=== PATIENT | female | born 1975 | race Caucasian/White ===

== ENCOUNTER 2020-01-22 17:07 | Emergency (ER) | payer OTHER, SELFPAY ==
[2020-01-22 17:19] VITALS: BP 135/81; PULSE 84; RESP 16; TEMP 36.7; O2SAT 99
--- NOTE | 2020-01-22 17:27 | ED.URI ---
HPI - URI/Sore Throat General Chief Complaint: Upper Respiratory Infection Stated Complaint: Congestion/Left eye redness Time Seen by Provider: 01/22/20 17:20 Source: patient Mode of arrival: ambulatory Limitations: no limitations History of Present Illness HPI Narrative: Kathia Nassar is a 45 yo female with no PMH who comes to express care with left eye with left eye swelling, redness. Started 1 day ago stated Related Data Home Medications Medication Instructions Recorded Confirmed clobetasol 0.05 % topical cream 1 applic TOPICAL BID 09/15/19 Allergies Allergy/AdvReac Type Severity Reaction Status Date / Time gramicidin D Allergy Mild RASH Verified 10/04/19 14:11 neomycin Allergy Mild RASH Verified 10/04/19 14:11 bacitracin Allergy Unknown Rash Verified 10/04/19 14:11 polymyxin B Allergy Unknown Rash Verified 10/04/19 14:11 Review of Systems Review of Systems: Narrative: CONSTITUTIONAL: Denies fever, chills, sweats. EYES: Denies visual changes,has redness, discharge. ENT: Denies rhinorrhea, congestion, sore throat, otalgia. CARDIOVASCULAR: Denies chest pain, palpitations, edema. RESPIRATORY: Denies dyspnea, wheezing, cough GASTROINTESTINAL: Denies abdominal pain, nausea, vomiting, diarrhea. GENITOURINARY: Denies dysuria, hematuria, abnormal discharge SKIN: Denies rash or itching. NEUROLOGIC: Denies numbness, or focal weakness. PSYCHIATRIC: Denies anxiety or depression. [facility] Past Medical History Medical History (Updated 01/22/20 @ 17:45 by Ameena Melendez CNP) Scoliosis Surgical History Surgical History H/O hysterectomy with oophorectomy (~2008) History of bladder surgery Family History Family History Father Diabetes mellitus Hypertension Malignant neoplasm of prostate Sibling Hypertension Mother Hypertension Social History Social History Smoking status: Never smoker Second hand tobacco smoke exposure: No Alcohol intake: never Comments At time of signature, I agree with nursing past medical, surgical, social and family history. There is no relevant family history pertinent to the presenting complaint. Exam Narrative: Exam Narrative: GENERAL: This is a well-nourished, well-developed patient, in no apparent distress. HEAD: normocephalic, atraumatic. EYES: Sclera clear/ left eye injected. vision is grossly intact. EARS: External ears normal, auditory canals clear and without drainage, Hearing grossly intact. NOSE: External nose normal with no obvious nasal discharge, nares without redness, no rhinorrhea. THROAT: Mucous membranes moist, posterior pharynx clear. NECK: Neck supple, non-tender y. CARDIOVASCULAR: Regular rate and rhythm without murmurs, gallops, or rubs. RESPIRATORY: Clear to auscultation. Breath sounds equal bilaterally. No wheezes, rales, or rhonchi. GASTROINTESTINAL: Abdomen soft, non-tender, SKIN: warm, intact with no suspicious lesions or rash, good texture and turgor. NEURO: awake, alert, and oriented to person, place and time. There were no obvious focal neurologic abnormalities. Steady gait EXTREMITIES: Normal range of motion. BACK: Nontender without deformity . Course Course Emergency Course: started on Bleph 10 - instructions given, take meds minimum 3 days Vital Signs Vital signs: Vital Signs Temperature 98.1 F 01/22/20 17:19 Pulse Rate 84 01/22/20 17:19 Respiratory Rate 16 01/22/20 17:19 Blood Pressure 135/81 01/22/20 17:19 Pulse Oximetry 99 01/22/20 17:19 Temperature 98.1 F 01/22/20 17:19 Pulse Rate 84 01/22/20 17:19 Respiratory Rate 16 01/22/20 17:19 Blood Pressure 135/81 01/22/20 17:19 Pulse Oximetry 99 01/22/20 17:19 MDM - URI/Sore Throat Differential Diagnosis Differential diagnosis: Likely upper respiratory infection, otitis media,
== END 2020-01-22 17:39 | disposition home or self-care (01) ==
PROVIDERS: Emergency Provider Nurse Practitioner; PCP Family Medicine
DX: H10.022 Other mucopurulent conjunctivitis, left eye (principal); H10.9 Unspecified conjunctivitis; J45.909 Unspecified asthma, uncomplicated
CPT/HCPCS: 99213; G0463

== ENCOUNTER 2021-04-20 12:01 | Outpatient (CLI) | payer OTHER, SELFPAY ==
[2021-04-20 12:45] LABS: Alanine Aminotransferase 28 U/L (4-35); Albumin Level 4.7 g/dL (3.5-5.1); Alkaline Phosphatase 75 U/L (38-126); Anion Gap 9 mmol/L (8-16); Aspartate Amino Transferase 33 U/L (14-36); Bilirubin,Total 0.8 mg/dL (0.2-1.3); Blood Urea Nitrogen 10 mg/dL (7-17); Calcium 10.2 mg/dL (8.4-10.2); Carbon Dioxide 28 mmol/L (22-30); Chloride 105 mmol/L (98-107); Cholesterol 188 mg/dL (0-200); Estimated Glomerular Filt Rate > 60; Glucose 94 mg/dL (65-105); HDL Direct 45 mg/dL; Potassium 4.1 mmol/L (3.4-5.0); Sodium 142 mmol/L (137-145); Triglycerides 209 mg/dL (<150)
[2021-04-20 12:57] LABS: LDL Cholesterol Direct 87 mg/dL
[2021-04-20 13:58] LABS: Hemoglobin A1C 5.1 % (<5.7)
== END 2021-04-20 12:02 | disposition home or self-care (01) ==
LOC: ANHLAB 12:03
PROVIDERS: PCP Family Medicine; Visit Provider Physician Assistant
DX: Z00.00 Encounter for general adult medical examination without abnormal findings (principal); R73.09 Other abnormal glucose
CPT/HCPCS: 36415; 80053; 80061; 83036

== ENCOUNTER 2021-04-27 15:17 | Outpatient (CLI) | payer OTHER, SELFPAY ==
--- NOTE | ~2021-04-27 | MM_ITS ---
EXAMINATION: MM screening damien BI w tab HISTORY: Screening mammogram TECHNIQUE: Craniocaudal and mediolateral oblique 3-D tomosynthesis images were obtained and synthetic 2-D images were generated. CAD analysis was submitted and interpreted. COMPARISON: 06/02/2019 BREAST PARENCHYMAL COMPOSITION: The breasts are heterogeneously dense, which may obscure small masses . FINDINGS: RIGHT BREAST: There is tree in the middle third of the upper outer quadrant of the breast. LEFT BREAST: There is no evidence of suspicious mass, calcification, or architectural distortion to s uggest malignancy. There has been no significant interval change. IMPRESSION: 1. Focal asymmetry of the right breast. 2. Additional mammographic views and possible breast ultrasound are recommended. BI-RADS Category 0: Incomplete: Needs additional imaging evaluation. Reviewed, dictated and finalized at location A. IMPRESSION: 1. Focal asymmetry of the right breast. 2. Additional mammographic views and possible breast ultrasound are recommended . BI-RADS Category 0: Incomplete: Needs additional imaging evaluation.
== END 2021-04-27 15:18 | disposition home or self-care (01) ==
LOC: ANHIMG 15:19
PROVIDERS: PCP Family Medicine; Visit Provider Physician Assistant
DX: Z12.39 Encounter for other screening for malignant neoplasm of breast (principal); R92.8 Other abnormal and inconclusive findings on diagnostic imaging of breast
CPT/HCPCS: 77063; 77067

== ENCOUNTER 2021-04-30 14:26 | Emergency (ER) | payer OTHER, SELFPAY ==
--- NOTE | 2021-04-30 14:32 | ED.WOUNDLAC ---
HPI - Wound/Laceration General Chief Complaint: Wound/Laceration Stated Complaint: Laceration on forehead Time Seen by Provider: 04/30/21 14:32 Source: patient and RN notes reviewed Mode of arrival: ambulatory Limitations: no limitations History of Present Illness HPI narrative: 46-year-old female presents to the [facility] with complaints of a laceration center of the anterior scalp. Happened just prior to arrival. No loss of consciousness. No blurry vision or change in vision. No neurologic symptoms. Bleeding is now well controlled. Pressure held to the wound. Patient states that she hit her head on the corner of a cabinet when she went to stand up. Last TDap 2017 Related Data Home Medications Medication Instructions Recorded Confirmed No Home Medications 04/30/21 04/30/21 Allergies Allergy/AdvReac Type Severity Reaction Status Date / Time gramicidin D Allergy Mild RASH Verified 04/30/21 14:44 neomycin Allergy Mild RASH Verified 04/30/21 14:44 bacitracin Allergy Unknown Rash Verified 04/30/21 14:44 polymyxin B Allergy Unknown Rash Verified 04/30/21 14:44 cephalexin AdvReac Severe Vomiting Verified 04/30/21 14:44 Review of Systems Review of Systems: All systems reviewed & are unremarkable except as noted in HPI and below Constitutional: Constitutional: Reports no additional constitutional complaints, Denies chills and Denies fever(s) Eyes: Eyes: Reports no additional eye complaints, Denies change in vision and Denies photophobia ENT: Reports system reviewed and no additional complaints, except as documented Cardiovascular: Cardiovascular: Reports no additional cardiovascular complaints and Denies chest pain Respiratory: Respiratory: Reports no additional respiratory complaints, Denies cough and Denies dyspnea Musculoskeletal: Musculoskeletal: Reports no additional musculoskeletal complaints Integumentary/Breasts: Skin/Breast: Reports as per HPI Comments: Laceration scalp anterior center Neurologic: Reports system reviewed and no additional complaints, except as documented, Denies confusion, Denies vertigo, Denies dizziness, Denies syncope, Denies headache(s), Denies focal weakness, Denies numbness and Denies weakness Psychiatric: Psychiatric: Reports no additional psychiatric complaints Allergic/Immunologic: Allergic/Immunologic: Reports no additional allergic/immunologic complaints, Denies lip swelling, Denies throat swelling, Denies tongue swelling and Denies wheezing PMFSH Past Medical History Medical History Scoliosis Surgical History Surgical History H/O hysterectomy with oophorectomy (~2008) History of bladder surgery Family History Family History Father Diabetes mellitus Hypertension Malignant neoplasm of prostate Sibling Hypertension Mother Hypertension Social History Social History Smoking status: Never smoker Second hand tobacco smoke exposure: No Alcohol intake: never Substance use: never Substance use type: does not use Spiritual care concerns: No Agree to blood products: Yes Comments At the time of my signature, I reviewed and agree with the nursing past medical, surgical, social, and family history. There is no relevant family history pertinent to the patient complaint. Exam Const: General: healthy appearing, no acute distress and alert Nutritional Appearance: well nourished and obese Orientation/consciousness: patient oriented x3 Limitations: no limitations HENMT: Head: normal to inspection and laceration center anterior scalp linear and superficial; not actively bleeding, no foreign body present and not contaminated Ears: external ears normal, TM's normal bilaterally and EAC's normal Eyes: Conjunctivae: conjunctivae normal Pupils: Equa
[2021-04-30 14:36] VITALS: BP 135/77; PULSE 88; RESP 16; TEMP 36.6; O2SAT 100
== END 2021-04-30 14:50 | disposition home or self-care (01) ==
PROVIDERS: Emergency Provider Nurse Practitioner; PCP Family Medicine
DX: S01.01XA Laceration without foreign body of scalp, initial encounter (principal); W22.8XXA Striking against or struck by other objects, initial encounter; M41.9 Scoliosis, unspecified; J45.909 Unspecified asthma, uncomplicated; Z90.711 Acquired absence of uterus with remaining cervical stump
CPT/HCPCS: 12001; 99212; G0463

== ENCOUNTER 2021-05-23 13:26 | Outpatient (CLI) | payer OTHER, SELFPAY ==
--- NOTE | ~2021-05-23 | MM_ITS ---
EXAMINATION: MM diagnostic mammo unilat RT HISTORY: Focal asymmetry of the right breast on screening mammogram TECHNIQUE: Additional 3-D tomosynthesis images of the right breast were performed and synthetic 2-D i mages were generated. CAD analysis was submitted and interpreted. COMPARISON: 04/30/2018, 06/02/2019 FINDINGS: There is a return to baseline fibroglandular appearance with spot compression of the right breast in the area questioned on screening mammogram. IMPRESSION: 1. No mammographic evidence of malignancy. 2. Recommend routine screening mammography in one year. BI-RADS Category 1: Negative Reviewed, dictated and finalized at location A.
== END 2021-05-23 13:27 | disposition home or self-care (01) ==
LOC: ANHIMG 13:27
PROVIDERS: PCP Family Medicine; Visit Provider Family Medicine
DX: R92.8 Other abnormal and inconclusive findings on diagnostic imaging of breast (principal)
CPT/HCPCS: 77065

== ENCOUNTER 2022-09-21 11:26 | Outpatient (CLI) | payer BC, SELFPAY ==
--- NOTE | ~2022-09-21 | MM_ITS ---
EXAMINATION: MM screening damien BI w tab HISTORY: Screening TECHNIQUE: Craniocaudal and mediolateral oblique 3-D tomosynthesis images were obtained and synthetic 2-D images were generated. CAD analysis was submitted and interpreted. COMPARISON: Comparison to multiple prior studies sequentially, with oldest reviewed study dated 06/02. BREAST PARENCHYMAL COMPOSITION: The breasts are heterogeneously dense, which may obscure small masses . FINDINGS: There are new focal asymmetries inferiorly in the left breast on MLO view. The right breast is stable without evidence for malignancy. IMPRESSION: 1. New left breast asymmetries. 2. Additional mammographic views and possible breast ultrasound are recommended. BI-RADS Category 0: Incomplete: Needs additional imaging evaluation. Reviewed, dictated and finalized at location A. [employer]ER IMPRESSION: 1. New left breast asymmetries. 2. Additional mammographic views and possible breast ultrasound are recommended . BI-RADS Category 0: Incomplete: Needs additional imaging evaluation.
== END 2022-09-21 11:27 | disposition home or self-care (01) ==
PROVIDERS: PCP Family Medicine; Visit Provider Family Medicine
DX: Z12.31 Encounter for screening mammogram for malignant neoplasm of breast (principal); R92.8 Other abnormal and inconclusive findings on diagnostic imaging of breast
CPT/HCPCS: 77063; 77067

== ENCOUNTER 2022-10-10 13:49 | Outpatient (CLI) | payer BC, SELFPAY ==
--- NOTE | ~2022-10-10 | MM_ITS ---
EXAMINATION: MM diagnostic damien LT w tab HISTORY: Left breast asymmetry on screening mammogram TECHNIQUE: Additional 3-D tomosynthesis images of the left breast were performed and synthetic 2-D im ages were generated. CAD analysis was submitted and interpreted. COMPARISON: 09/21/2022, 04/27/2021, 06/02/2019 FINDINGS: There is a return to baseline fibroglandular appearance with spot compression of the left b reast in the area questioned on screening mammogram. IMPRESSION: 1. No mammographic evidence of malignancy. 2. Recommend routine screening mammography in one year. BI-RADS Category 1: Negative Reviewed, dictated and finalized at location A. MAN
== END 2022-10-10 13:50 | disposition home or self-care (01) ==
LOC: ANHIMG 13:51
PROVIDERS: PCP Family Medicine; Visit Provider Family Medicine
DX: R92.8 Other abnormal and inconclusive findings on diagnostic imaging of breast (principal)
CPT/HCPCS: 77061; 77065; G0279

== ENCOUNTER 2023-06-28 07:07 | Outpatient (CLI) | payer BC, SELFPAY ==
[2023-06-28 08:19] LABS: Potassium 4.1 mmol/L (3.4-5.0)
[2023-06-28 08:20] LABS: Alanine Aminotransferase 15 U/L (6-35); Albumin Level 4.2 g/dL (3.5-5.1); Alkaline Phosphatase 47 U/L (38-126); Anion Gap 5 mmol/L (8-16); Aspartate Amino Transferase 22 U/L (14-36); Bilirubin,Total 0.6 mg/dL (0.2-1.3); Blood Urea Nitrogen 12 mg/dL (7-17); Calcium 8.8 mg/dL (8.4-10.2); Carbon Dioxide 25 mmol/L (22-30); Chloride 105 mmol/L (98-107); Cholesterol 200 mg/dL (0-200); Estimated Glomerular Filt Rate > 60; Glucose 98 mg/dL (65-110); HDL Direct 51 mg/dL; Sodium 135 mmol/L (137-145); Triglycerides 155 mg/dL (<150)
[2023-06-28 08:30] LABS: LDL Cholesterol Direct 97 mg/dL
== END 2023-06-28 07:08 | disposition home or self-care (01) ==
LOC: ANHLAB 07:08
PROVIDERS: PCP Family Medicine; Visit Provider Physician Assistant
DX: Z13.1 Encounter for screening for diabetes mellitus (principal); Z13.220 Encounter for screening for lipoid disorders
CPT/HCPCS: 36415; 80053; 80061

== ENCOUNTER 2023-09-14 10:55 | Emergency (ER) | payer BC, SELFPAY ==
--- NOTE | 2023-09-14 10:59 | ED.FEMALEGU ---
HPI - Female Genitourinary General Chief complaint: Urogenital-Female Stated complaint: urinary issue Time Seen by Provider: 09/14/23 10:58 Source: patient Mode of arrival: ambulatory Limitations: no limitations History of Present Illness HPI Narrative: Madelin is a 48-year-old female patient presenting to clinic today with complaints of possible urinary tract infection. She reports she developed burning, frequency, urgency with urination this morning. Denies any known fever, chills, abdominal pain, or back pain. States if positive this would be her 4th UTI this year. Related Data Allergies Allergy/AdvReac Type Severity Reaction Status Date / Time gramicidin D Allergy Mild RASH Verified 09/14/23 10:56 neomycin Allergy Mild RASH Verified 09/14/23 10:56 bacitracin Allergy Unknown Rash Verified 09/14/23 10:56 polymyxin B Allergy Unknown Rash Verified 09/14/23 10:56 cephalexin AdvReac Severe Vomiting Verified 09/14/23 10:56 Review of Systems Review of Systems: Pertinent positives per HPI. Patient denies any fever, chills, rash, headache, visual changes, dizziness, cough, shortness of breath, chest pain, palpitations, nausea, vomiting, diarrhea, constipation, abdominal pain. [facility] Past Medical History Medical History Low back pain Scoliosis Surgical History Surgical History H/O hysterectomy with oophorectomy (~2008) History of bladder surgery Family History Family History Father Diabetes mellitus Hypertension Malignant neoplasm of prostate Sibling Hypertension Mother Hypertension Social History Social History Smoking status: Never smoker Second hand tobacco smoke exposure: No Alcohol intake: never Substance use: never Substance use type: does not use Lack of Transportation: No Lack of Food: Never True Current Housing: I Have Housing Concerned About Future Housing: No Difficulty Paying Gas/Electric Bills: No Difficulty Paying for Meds: No Currently Unemployed: No Education: Bachelor's Degree Difficulty w/ Childcare or Family Care: No Gender identity (if verbalized by the patient): Female Sexual Orientation (if Verbalized by the Patient): Straight or Heterosexual Spiritual care concerns: No Agree to blood products: Yes Comments At the time of my signature, I reviewed and agree with the nursing past medical, surgical, social, and family history. There is no relevant family history pertinent to the patient complaint. Exam Narrative: General: Well-developed, well nourished, in no apparent distress. Head: Normocephalic, atraumatic. Cardio: Regular rate and rhythm, s1 and s2 normal, no murmur appreciated. Resp: Clear to auscultation bilaterally, no rhonchi, rales, wheezing or rubs. Abdomen: Soft, pliable, bowel sounds present in all quadrants, non-tender to palpation, no organomegly, no CVAT tenderness. Course Course Emergency Course: Portions of this record may have been created with voice recognition software. Level of Care: Express Care Visit Vital Signs Vital signs: Vital signs reviewed MDM - Female Genitourinary MDM Narrative Medical decision making narrative: At the time of visit patient is resting comfortably on the exam table. Urinalysis was performed and shows 1+ bacteria, 2+ protein, and 3+ blood. Will send urine for culture. prescription for Augmentin was sent to the pharmacy and supportive measures were discussed with the patient and she voiced understanding the discharge instructions and agrees to treatment plan. Differential Diagnosis Differential diagnosis: Likely urinary tract infection, cystitis and other (Pyelonephritis) Discharge Plan Discharge Clinical Impression: Acute UTI (urinary tract
[2023-09-14 11:05] VITALS: BP 139/79; PULSE 93; RESP 16; TEMP 37.1; O2SAT 99
== END 2023-09-14 11:19 | disposition home or self-care (01) ==
PROVIDERS: Emergency Provider Nurse Practitioner Family; PCP Family Medicine
DX: N39.0 Urinary tract infection, site not specified (principal); M41.9 Scoliosis, unspecified
CPT/HCPCS: 81003; 87077; 87086; 87088; 99213; G0463

== ENCOUNTER 2023-12-26 11:43 | Outpatient (CLI) | payer BC, SELFPAY ==
--- NOTE | ~2023-12-26 | XR_ITS ---
EXAMINATION: XR abdomen/kub 1V INDICATION: Left-sided kidney stone TECHNIQUE: Supine views of the abdomen were obtained on 2 radiographs. COMPARISON: None FINDINGS: No urolithiasis is identified. Left pelvic calcifications have the appearance of phlebolith s. The visualized lung bases are clear. A moderate volume of colonic stool is present. There is mild osteoarthritis of the hips. Moderate lumbar spondylosis is noted. IMPRESSION: 1. No urolithiasis identified. Reviewed, dictated and finalized at location B. RUNNER
== END 2023-12-26 11:44 | disposition home or self-care (01) ==
LOC: ANHIMG 11:45
PROVIDERS: PCP Family Medicine; Visit Provider Nurse Practitioner Family
DX: N20.0 Calculus of kidney (principal)
CPT/HCPCS: 74018

== ENCOUNTER 2024-01-01 13:42 | Outpatient (CLI) | payer BC, SELFPAY ==
--- NOTE | ~2024-01-01 | CT_ITS ---
Non-contrast CT scan of the Abdomen and Pelvis Clinical indication: Kidney stone Technique: 2.5 mm axial scans were obtained through the abdomen and pelvis without intravenous or or al contrast. Dose reduction technique was used on this scan by utilizing automated exposure control a nd iterative reconstruction technique. The dose-length product (DLP) was 564.27 mGy-cm. Findings: Images through the lung bases reveal no abnormalities. There is no evidence of renal or ureteral calculi. The kidneys and the ureters are nondilated. The liver, spleen, pancreas, and adrenals appear normal. Small calcified gallstones are present. Ther e is no aortic aneurysm. There is no evidence of bowel obstruction. Images through the pelvis were performed. Patient is status post hysterectomy. Urinary bladder unrema rkable.. There is a large simple appearing cystic mass in the pelvis measuring 12.2 x 12.2 x 10.8 cm, superior to the urinary bladder (sagittal image 74). Impression: 12.2 x 12.2 x 10.8 cm simple appearing cystic mass in the pelvis. This is of uncertain precise etiolo gy, but has a benign appearance overall. Diagnostic considerations could include peritoneal inclusion cyst, large lymphocele, postoperative seroma, other duplication cyst, or large cystic adnexal lesion . Cholelithiasis. Reviewed, dictated and finalized at location . [employer] Impression: 12.2 x 12.2 x 10.8 cm simple appearing cystic mass in the pelvis. This is of un certain precise etiology, but has a benign appearance overall. Diagnostic consi derations could include peritoneal inclusion cyst, large lymphocele, postoperat shala seroma, other duplication cyst, or large cystic adnexal lesion. Cholelithiasis.
== END 2024-01-01 13:43 ==
LOC: MICIMG 13:43
PROVIDERS: PCP Family Medicine; Visit Provider Urology
DX: N20.0 Calculus of kidney (principal); K80.20 Calculus of gallbladder without cholecystitis without obstruction; R19.09 Other intra-abdominal and pelvic swelling, mass and lump
CPT/HCPCS: 74176

== ENCOUNTER 2024-01-30 12:05 | Outpatient (CLI) | payer BC, SELFPAY ==
[2024-01-30 13:37] LABS: Carcinoembryonic Antigen 1.1 ng/mL (0.0-3.0)
[2024-02-03 04:18] LABS: CA-125 8 U/mL (<35)
[2024-02-03 13:46] LABS: CA 19-9 36 U/mL (<34); FSH 60.9 mIU/mL (***)
[2024-02-04 14:42] LABS: Testosterone Free 1.4 pg/mL (0.1-6.4); Testosterone Total 17 ng/dL (2-45)
[2024-02-06 01:17] LABS: Estradiol, Ultrasensitive 34 pg/mL
== END 2024-01-30 12:06 | disposition home or self-care (01) ==
LOC: ANHLAB 12:07
PROVIDERS: PCP Family Medicine; Visit Provider Obstetrics & Gynecology
DX: R19.00 Intra-abdominal and pelvic swelling, mass and lump, unspecified site (principal)
CPT/HCPCS: 36415; 82105; 82378; 82670; 83001; 84402; 84403; 86301; 86304

== ENCOUNTER 2024-02-04 12:45 | Outpatient (CLI) | payer BC, SELFPAY ==
--- NOTE | ~2024-02-04 | US_ITS ---
EXAMINATION: US pelvic complete w TV DATE: 02/04/2024 13:25 INDICATION: Large cyst seen in the pelvis on prior CT Comparison:CT dated 01/01/2024 TECHNIQUE: Multiple transabdominal and endovaginal sonographic images of the pelvis performed. FINDINGS: The uterus is surgically absent. There is a large cystic mass containing internal debris me asuring 16.4 x 8.1 x 10.7 cm. The ovaries are not visualized. No free fluid in the pelvis. IMPRESSION: 1. Large complicated cystic mass of the pelvis measuring 16.4 x 8.1 x 2.7 cm. Considerations include peritoneal inclusion cyst, lymphocele, seroma, duplication cyst or cystic adnexal mass include a cyst adenoma and cystadenocarcinoma. Reviewed, dictated and finalized at location L. IMPRESSION: 1. Large complicated cystic mass of the pelvis measuring 16.4 x 8.1 x 2.7 cm. C onsiderations include peritoneal inclusion cyst, lymphocele, seroma, duplicatio n cyst or cystic adnexal mass include a cystadenoma and cystadenocarcinoma.
== END 2024-02-04 12:46 ==
PROVIDERS: PCP Family Medicine; Visit Provider Obstetrics & Gynecology
DX: R93.89 Abnormal findings on diagnostic imaging of other specified body structures (principal); R19.09 Other intra-abdominal and pelvic swelling, mass and lump
CPT/HCPCS: 76830; 76856

== ENCOUNTER 2024-03-24 16:23 | Emergency (ER) | payer BC, SELFPAY ==
--- NOTE | ~2024-03-24 | CT_ITS ---
EXAMINATION: CT abdomen pelvis w con DATE: 03/24/2024 18:57 INDICATION: Lower abdominal pain. Nausea and vomiting. Fever. TECHNIQUE: Computed tomography (CT) of the abdomen and pelvis was performed with 100 mL Omnipaque 350 intravenous contrast. Automated exposure control and iterative reconstruction technique were employe d. The dose-length product was 322.15 mGy-cm. COMPARISON: CT abdomen and pelvis 01/01/2024 FINDINGS: The visualized portions of the lung bases demonstrate mild atelectasis. No pleural effusion . The heart size is normal. No pericardial effusion. There is a 17 mm cyst in the liver. There is a g allstone in the gallbladder. Gallbladder distention is likely secondary to fasting. The spleen, pancr eas, adrenal glands, and kidneys are normal. There is a left internal ureteral stent in expected posi tion. There are no dilated loops of bowel. There are no pathologically enlarged lymph nodes. There is trace ascites. There is fat stranding in the lower abdomen. There is severe lumbar spondylosis. IMPRESSION: 1. Fat stranding in the lower abdomen, likely inflammation from recent surgery. Reviewed, dictated and finalized at location E.
[2024-03-24 16:24] VITALS: BP 143/96; PULSE 115; RESP 16; TEMP 36.9; O2SAT 100
[2024-03-24 16:52] LABS: Basophils Percent Auto 0.4 % (0.2-1.2); Eosinophils Absolute Auto 0.4 K/mm3 (0-0.3); Eosinophils Percent Auto 4.9 % (0-4.4); Hematocrit 40.5 % (37.0-47.0); Hemoglobin 13.5 g/dL (12.0-15.0); Immature Granulocyte Absolute 0.02 K/mm3 (0.00-0.031); Immature Granulocyte Percent A 0.3 % (0-0.5); Lymphocytes Absolute Auto 0.94 K/mm3 (0.9-3.2); Lymphocytes Percent Auto 13.3 % (18.3-44.2); Mean Corpuscular HGB Conc 33.3 g/dl (32-36); Mean Corpuscular Hemoglobin 28.8 pg (26-34); Mean Corpuscular Volume 86.5 fl (80-100); Mean Platelet Volume 9.7 fl (7.4-10.4); Monocytes Absolute Auto 0.5 K/mm3 (0.1-0.6); Monocytes Percent Auto 7.3 % (2.6-8.5); Neutrophils Absolute Auto 5.2 K/mm3 (1.3-6.7); Neutrophils Percent Auto 73.8 % (45.5-73.1); Platelet Count Result 255 k/mm3 (150-375); Red Blood Count 4.68 M/mm3 (4.2-5.4); Red Cell Distribution Width 12.9 % (11.5-14.5); White Blood Count 7.1 K/mm3 (4.5-10.0)
--- NOTE | 2024-03-24 17:31 | ED.NAVMDI ---
HPI - Nausea/Vomiting/Diarrhea General Chief complaint: Nausea/Vomiting/Diarrhea Stated complaint: fever, cramps, vomitting Time Seen by Provider: 03/24/24 17:02 Source: patient Mode of arrival: ambulatory Limitations: no limitations History of Present Illness HPI Narrative: Patient is a 49-year-old female, with pmh of hysterectomy, who presents the ED with report of lower abdominal pain, fevers. Patient reports she underwent L ovarian cystectomy with oophorectomy on at [facility] by Dr. Doan. She states she had a stent placed in her urethra at that time, she is unsure why. She was told she may have some dysuria and hematuria for a few days afterwards. States symptoms initially improved, but became worse again yesterday. Reports dysuria, lower abdominal pain radiating around to her lower back, fever up to 101.8 degrees F, nausea, vomiting. She has had 2 bowel movements since her surgery. Denies rectal bleeding or melena. Related Data Allergies Allergy/AdvReac Type Severity Reaction Status Date / Time gramicidin D Allergy Mild RASH Verified 01/29/24 14:46 neomycin Allergy Mild RASH Verified 01/29/24 14:46 bacitracin Allergy Unknown Rash Verified 01/29/24 14:46 polymyxin B Allergy Unknown Rash Verified 01/29/24 14:46 cephalexin AdvReac Severe Vomiting Verified 01/29/24 14:46 Review of Systems Review of Systems: CONSTITUTIONAL: See HPI. GASTROINTESTINAL: See HPI. GENITOURINARY: See HPI. MUSCULOSKELETAL: See HPI. All systems reviewed & are unremarkable except as noted in HPI and below PMFSH Past Medical History Medical History Abscess Breech presentation Low back pain Placenta accreta Placenta previa Scoliosis Surgical History Surgical History H/O hysterectomy with oophorectomy (~2008) History of bladder surgery Family History Family History Father Diabetes mellitus Hypertension Malignant neoplasm of prostate Sibling Hypertension Mother Hypertension Social History Social History Smoking status: Never smoker Second hand tobacco smoke exposure: No Alcohol intake: never Substance use: never Substance use type: does not use Do You Feel Safe in your Home?: Yes Lack of Transportation: No Lack of Food: Never True Current Housing: I Have Housing Concerned About Future Housing: No Difficulty Paying Gas/Electric Bills: No Difficulty Paying for Meds: No Currently Unemployed: No Education: Bachelor's Degree Difficulty w/ Childcare or Family Care: No Living arrangements: with family Occupation/Education: occupation 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 HEAD: Normocephalic, atraumatic. RESPIRATORY: Airway patent, respirations nonlabored. Clear to auscultation bilaterally, no rales, rhonchi, wheezing. CARDIOVASCULAR: Tachycardic with regular rhythm without murmurs, rubs, or gallops. ABDOMINAL: Soft, tenderness throughout lower abdomen/suprapubic region, nondistended. Normoactive BS. No significant CVA tenderness to percussion. MUSCULOSKELETAL: Moves all extremities. No gross deformities. SKIN: Warm, dry, normal color. NEURO: A&O X3. Speech clear. PSYCHIATRIC: Appropriate mood and affect. Normal interaction. Course Vital Signs Vital signs: Vital Signs Temperature 98.5 F 03/24/24 16:24 Pulse Rate 115 H 03/24/24 16:24 Respiratory Rate 16 03/24/24 16:24 Blood Pressure
[2024-03-24 17:46] VITALS: TEMP 37.6
[2024-03-24] MEDS: MORPHINE SULFATE (*CRX) 4 MG/ML INJ IV PUSH (17:55)
[2024-03-24] MEDS: SODIUM CHLORIDE 0.9% IV 1,000 ML 999 ML IV CONT ×2 (17:55→19:06)
[2024-03-24] MEDS: ONDANSETRON INJ 4 MG/2 ML VIAL IV PUSH (17:56)
[2024-03-24 18:33] LABS: Alanine Aminotransferase 16 U/L (6-35); Albumin Level 4.7 g/dL (3.5-5.1); Alkaline Phosphatase 74 U/L (38-126); Anion Gap 7 mmol/L (4-12); Aspartate Amino Transferase 28 U/L (14-36); Bilirubin,Total 0.7 mg/dL (0.2-1.3); Blood Urea Nitrogen 14 mg/dL (7-17); Calcium 9.3 mg/dL (8.4-10.2); Carbon Dioxide 29 mmol/L (22-30); Chloride 105 mmol/L (98-107); Estimated CRCL calculation 84 ml/min; Estimated Glomerular Filt Rate > 60; Glucose 105 mg/dL (65-110); Lipase 85 U/L (23-300); Potassium 3.7 mmol/L (3.4-5.0); Sodium 141 mmol/L (137-145)
[2024-03-24 18:37] LABS: Bacteria Urine Rare /hpf; RBC Urine >100 /hpf (0-2); Squamous Epithelial Cell Urine None Seen /hpf (Few); WBC Urine 51-100 /hpf (0-3)
[2024-03-24 18:43] LABS: Appearance Urine Cloudy (Clear); Bilirubin Urine Negative (Negative); Blood Urine 3+ (Negative); Glucose Urine UA Negative (Negative); Ketones Urine Negative (Negative); Leukocyte Esterase Ur 2+ LEU/UL (Negative); Nitrate Urine Negative (Negative); Protein Urine 2+ mg/dL (Negative); Specific Grav Ur 1.016 (1.001-1.035); pH Urine 8.5 (5.0-9.0)
[2024-03-24 18:44] LABS: Color Urine Amber (Yellow)
[2024-03-24 18:45] LABS: Add Urine Microscopic? YES
[2024-03-24 18:48] LABS: Lactic Acid Reflex 1.3 mmol/L (0.7-2.0)
--- NOTE | 2024-03-24 18:49 | ECG_ITS ---
SEE SCANNED COPY FOR CONFIRMED REPORT MTDD
[2024-03-24] MEDS: ACETAMINOPHEN 500 MG TABLET 1000 MG PO (19:05)
[2024-03-24 19:12] VITALS: BP 117/55; PULSE 111; RESP 18; O2SAT 99
[2024-03-24 20:40] VITALS: BP 113/66; PULSE 100; RESP 16; O2SAT 98
== END 2024-03-24 20:42 | disposition home or self-care (01) ==
PROVIDERS: Emergency Medicine; Emergency Provider Physician Assistant; PCP Family Medicine
DX: N30.01 Acute cystitis with hematuria (principal); Z90.710 Acquired absence of both cervix and uterus
CPT/HCPCS: 36415; 74177; 80053; 81001; 83605; 83690; 85025; 87040; 87077; 87086; 87088; 87181; 93005; 96361; 96365; 96366; 96375; 99284; A9270; J0696; J2270; J2405; J7030; Q9967

== ENCOUNTER 2024-06-04 15:23 | Outpatient (CLI) | payer BC, SELFPAY ==
--- NOTE | ~2024-06-04 | MM_ITS ---
EXAMINATION: MM screening damien BI w tab HISTORY: Screening TECHNIQUE: Craniocaudal and mediolateral oblique 3-D tomosynthesis images were obtained and synthetic 2-D images were generated. CAD analysis was submitted and interpreted. COMPARISON: Comparison to multiple prior studies sequentially, with oldest reviewed study dated 06/02. BREAST PARENCHYMAL COMPOSITION: Dense: The breasts are heterogeneously dense, which may obscure small masses FINDINGS: There is no evidence of suspicious mass, calcification, or architectural distortion to sugg est malignancy in either breast. There has been no suspicious interval change. IMPRESSION: 1. No mammographic evidence of malignancy. 2. Recommend routine screening mammography in one year. BI-RADS Category 1: Negative Reviewed, dictated and finalized at location B.
== END 2024-06-04 15:24 | disposition home or self-care (01) ==
LOC: ANHIMG 15:24
PROVIDERS: PCP Family Medicine; Visit Provider Family Medicine
DX: Z12.31 Encounter for screening mammogram for malignant neoplasm of breast (principal)
CPT/HCPCS: 77063; 77067

== ENCOUNTER 2024-10-08 07:06 | Outpatient (CLI) | payer BC, SELFPAY ==
--- NOTE | ~2024-10-08 | XR_ITS ---
XR lumbar spine 2-3V DATE: 10/08/2024 07:29 INDICATION: Low back pain TECHNIQUE: AP, lateral, coned lateral lumbosacral views COMPARISON: None FINDINGS: There is thoracolumbar levoscoliosis. Included lower thoracic and lumbar pedicles are intact. No fracture or bone destruction of the lumbar spine is evident. There is multilevel degenerative disc disease, moderately severe at L4-5, moderate at L2-3, mild at L 1-2 and L3-4. The L5-S1 interspace is well preserved. The sacroiliac joints are intact. There is a prominent amount of fecal material in the colon. IMPRESSION: Multilevel degenerative disc disease, most prominent at L4-5 Thoracolumbar levoscoliosis Reviewed, dictated and finalized at location A. [facility] [employer] [facility]
[2024-10-08 07:22] LABS: Basophils Percent Auto 0.7 % (0.2-1.2); Eosinophils Absolute Auto 0.4 K/mm3 (0-0.3); Eosinophils Percent Auto 6.4 % (0-4.4); Hematocrit 38.7 % (37.0-47.0); Hemoglobin 13.2 g/dL (12.0-15.0); Immature Granulocyte Absolute 0.01 K/mm3 (0.00-0.031); Immature Granulocyte Percent A 0.2 % (0-0.5); Lymphocytes Absolute Auto 1.85 K/mm3 (0.9-3.2); Lymphocytes Percent Auto 32.2 % (18.3-44.2); Mean Corpuscular HGB Conc 34.1 g/dl (32-36); Mean Corpuscular Hemoglobin 29.6 pg (26-34); Mean Corpuscular Volume 86.8 fl (80-100); Mean Platelet Volume 8.8 fl (7.4-10.4); Monocytes Absolute Auto 0.4 K/mm3 (0.1-0.6); Monocytes Percent Auto 7.7 % (2.6-8.5); Neutrophils Percent Auto 52.8 % (45.5-73.1); Platelet Count Result 260 k/mm3 (150-375); Red Blood Count 4.46 M/mm3 (4.2-5.4); Red Cell Distribution Width 13.4 % (11.5-14.5); White Blood Count 5.7 K/mm3 (4.5-10.0)
[2024-10-08 07:33] LABS: Alanine Aminotransferase 28 U/L (6-35); Albumin Level 4.3 g/dL (3.5-5.1); Alkaline Phosphatase 82 U/L (38-126); Anion Gap 8 mmol/L (4-12); Aspartate Amino Transferase 32 U/L (14-36); Bilirubin,Total 0.6 mg/dL (0.2-1.3); Blood Urea Nitrogen 12 mg/dL (7-17); Calcium 9.2 mg/dL (8.4-10.2); Carbon Dioxide 27 mmol/L (22-30); Chloride 104 mmol/L (98-107); Cholesterol 190 mg/dL (0-200); Estimated Glomerular Filt Rate > 60; Glucose 119 mg/dL (65-110); HDL Direct 57 mg/dL; Potassium 4.2 mmol/L (3.4-5.0); Sodium 139 mmol/L (137-145); Triglycerides 175 mg/dL (<150)
[2024-10-08 07:44] LABS: LDL Cholesterol Direct 84 mg/dL
[2024-10-08 07:55] LABS: Hemoglobin A1C 5.1 % (<5.7)
[2024-10-08 08:08] LABS: Free T4 Free Thyroxine 0.93 ng/mL (0.78-2.19)
== END 2024-10-08 07:07 | disposition home or self-care (01) ==
PROVIDERS: PCP Family Medicine; Visit Provider Student in an Organized Health Care Education/Training Program
DX: Z00.00 Encounter for general adult medical examination without abnormal findings (principal); M51.369 Other intervertebral disc degeneration, lumbar region without mention of lumbar back pain or lower extremity pain; M41.85 Other forms of scoliosis, thoracolumbar region; Z13.1 Encounter for screening for diabetes mellitus; Z13.220 Encounter for screening for lipoid disorders
CPT/HCPCS: 36415; 72100; 80053; 80061; 83036; 84439; 84443; 85025

== ENCOUNTER 2025-02-12 08:34 | Outpatient (CLI) | payer BC, SELFPAY ==
--- NOTE | ~2025-02-12 | MR_ITS ---
EXAMINATION: MR lumbar spine wo con DATE: 02/12/2025 09:18 INDICATION: Vertebra genic chronic low back pain TECHNIQUE: Magnetic resonance imaging (MRI) of the lumbar spine was performed without intravenous con trast. Sequences included sagittal T2-weighted FSE, sagittal T2-weighted FS FSE, sagittal T1-weighted FSE, and axial T2-weighted FSE. COMPARISON: Lumbar spine radiographs dated 10/08/2024 FINDINGS: 7 degrees lumbar levocurvature. 2 mm retrolisthesis L5 on S1. Vertebral body heights are normal. Mode rate to severe disc height loss with annular fissure at L4-L5 and with associated fibrofatty and fibr ovascular degenerative endplate changes. Bone marrow signal is otherwise normal throughout. Remaining discs are normal. The conus medullaris terminates at L2. There is normal signal in the caudal spinal cord. 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 Paravertebral soft tissues are unremarkable. The following dis c levels are specifically discussed: T12-L1 through L3-L4: Disc is mildly bulging. There is mild bilateral facet joint osteoarthritis. The re is no neural foraminal stenosis. There is minimal central canal stenosis. There is mild neural for aminal stenosis on the right at L2-L3 and bilaterally at L3-L4. L4-L5: Disc is bulging with annular fissure and superimposed central disc extrusion with disc materia l extending 3 mm caudal to the level of the superior endplate of L5. There is mild bilateral facet royer int osteoarthritis. There is mild to moderate bilateral neural foraminal stenosis. There is moderate central canal stenosis. L5-S1: Disc is mildly bulging. There is mild left and moderate right facet joint osteoarthritis. Ther e is mild left neural foraminal stenosis. There is no central canal stenosis. IMPRESSION: 1. Lumbar spondylosis, moderate to severe at L4-L5, otherwise minimal. Reviewed, dictated and finalized at location A.
== END 2025-02-12 08:35 | disposition home or self-care (01) ==
LOC: MICIMG 08:34
PROVIDERS: PCP Family Medicine; Visit Provider Anesthesiology Pain Medicine
DX: M54.51 Vertebrogenic low back pain (principal); M47.817 Spondylosis without myelopathy or radiculopathy, lumbosacral region; M54.50 Low back pain, unspecified; G89.29 Other chronic pain
CPT/HCPCS: 72148

== ENCOUNTER 2025-09-20 10:16 | Emergency (ER) | payer MEDICAID, SELFPAY ==
[2025-09-20 10:25] VITALS: BP 143/64; PULSE 97; RESP 18; TEMP 36.4; O2SAT 98
--- NOTE | 2025-09-20 10:28 | ED.FEMALEGU ---
HPI - Female Genitourinary General Chief complaint: Urogenital-Female Stated complaint: UTI Time Seen by Provider: 09/20/25 10:29 Source: patient Mode of arrival: ambulatory Limitations: no limitations History of Present Illness HPI Narrative: Kathia is a 50 year old female patient presenting to the clinic today with c/o possible UTI. She reports she developed burning, frequency, and urgency this morning. She has taken azo for her symptoms. Denies any back pain or abdominal pain. Does have some slight nausea. Related Data Home Medications ?Medication ?Instructions ?Recorded ?Confirmed ?Last Taken ?Type B-complex with vitamin C 1 cap PO DAILY 01/31/25 03/17/25 Unknown History albuterol sulfate 90 mcg/actuation 1 inh inhalation Q4-6H PRN 01/31/25 03/17/25 Unknown History breath activated powder inhaler omega-3 fatty acids 500 mg capsule 500 mg PO DAILY 01/31/25 03/17/25 Unknown History Allergies Allergy/AdvReac Type Severity Reaction Status Date / Time gramicidin D Allergy Mild RASH Verified 09/20/25 10:19 neomycin Allergy Mild RASH Verified 09/20/25 10:19 bacitracin Allergy Unknown Rash Verified 09/20/25 10:19 polymyxin B Allergy Unknown Rash Verified 09/20/25 10:19 cephalexin AdvReac Severe Vomiting Verified 09/20/25 10:19 Review of Systems Review of Systems: Pertinent positives per HPI. Patient denies any fever, chills, rash, headache, visual changes, dizziness, cough, runny nose, sore throat, shortness of breath, chest pain, palpitations, nausea, vomiting, diarrhea, constipation, abdominal pain. FORMERLY [facility], [facility] Past Medical History Medical History Arthritis Asthma Allergies Breech presentation Placenta accreta Placenta previa Low back pain Abscess Scoliosis Surgical History Surgical History History of bladder surgery H/O hysterectomy with oophorectomy (~2008) Family History Family History Father Diabetes mellitus Hypertension Malignant neoplasm of prostate Sibling Hypertension Mother Hypertension Social History Social History (Reviewed 09/20/25 @ 10:30 by VAHID Bernal Second hand tobacco smoke exposure: No Alcohol intake: never Substance use: never Substance use type: does not use Do You Feel Safe in your Home?: Yes Lack of Transportation: No Lack of Food: Never True Current Housing: I Have Housing Concerned About Future Housing: No Difficulty Paying Gas/Electric Bills: No Difficulty Paying for Meds: No Currently Unemployed: No Education: Bachelor's Degree Difficulty w/ Childcare or Family Care: No Living arrangements: with family Occupation/Education: occupation 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 There is no relevant family history pertinent to the patient complaint. Exam Narrative: General: Well-developed, obese, in no apparent distress. Head: Normocephalic, atraumatic. Cardio: Regular rate and rhythm, s1 and s2 normal, no murmur appreciated. Resp: Clear to auscultation bilaterally, no rhonchi, rales, wheezing or rubs. Abdomen: Soft, pliable, bowel sounds present in all quadrants, non-tender to palpation, no organomegly, no CVAT tenderness. Course Course Emergency Course: Portions of this record may have been created with voice recognition software. Level of Care: Express Care Visit Vital Signs Vital signs: Vital Signs Temperature 36.4 C 09/20/25 10:25 Pulse Rate 97 09/20/25 10:25 Respiratory Rate 18 09/20/25 10:25 Blood Pressure 143/64 H 09/20/25 10:25 Pulse Oximetry 98 09/20/25 10:25 Oxygen Delivery Room Air 09/20/25 10:25 Temperature 36.4 C 09/20/25 10:25 Pulse Rate 97 09/20/25 10:25 Respiratory Rate 18 09/20/25 10:25 Blood Pressure 143/64 H 09/20/25 10:25 Pulse Oximetry 98 09/20/25 10:25 Oxygen Delivery Room Air 09/20/25 10:25 Vital signs reviewed MDM - Female Genitourinary MDM Narrative Medical decision making narrative: At the time of visit patient is resting comfortably on the exam table. Patient appears to be nontoxic. C/o possible UTI. She reports she developed burning, frequency, and urgency this morning. She has taken azo for her symptoms. Denies any back pain or abdominal pain. Does have some slight nausea. On exam patient has soft, pliable, nondistended abdomen with no tenderness to palpation, no CVA tenderness, no organomegaly a bowel sounds present all 4 quadrants. Labs: Unable to perform urinalysis dip due to patient taking azo. We will send urine for culture. Plan: Patient is having UTI symptoms. Will cover with Bactrim DS and send urine for culture. Supportive measures were discussed with the patient and they voiced understanding discharge instructions and agrees to treatment plan. Return precautions reviewed Differential Diagnosis Differential diagnosis: Likely urinary tract infection and cystitis Discharge Plan Discharge Clinical Impression: Symptoms of urinary tract infection Patient Disposition: Home Condition: Stable Instructions: Antibiotic Form, Urinary Tract Infection in Women (ED) Additional Instructions: Urinalysis will be sent for culture Take Bactrim DS as prescribed. Increase fluids and stay well hydrated Wipe front to back. May use wet wipes. Avoid tub baths If sexually active- pee before and after intercourse. Wear cotton panties Avoid tight clothing up against the genitals Follow up with your PCP in 1 week if symptoms persist. Patient Language: [place] Prescriptions: New sulfamethoxazole-trimethoprim [Bactrim DS] 800-160 mg tablet 1 tablet PO Q12H 5 Days Qty: 10 0RF No Action albuterol sulfate 90 mcg/actuation aerosol powdr breath activated 1 inh inhalation Q4-6H PRN omega-3 fatty acids 500 mg capsule 500 mg PO DAILY B-complex with vitamin C Capsule 1 cap PO DAILY clobetasol 0.05 % ointment 1 applic topical .COMPLEX Qty: 60 2RF Rx Instructions: 1 applic topically to the vulva-- apply at 1-4x/month; can increase to BID x 2wks max if having significant irritation estradiol [Vivelle-Dot] 0.1 mg/24 hr patch semiweekly 1 patch transdermal 2XW Qty: 24 4RF Rx Instructions: apply 1 patch for 3 days alternating with 1 patch for 4 days each week estradiol 0.01 % (0.1 mg/gram) cream 1 g vaginal .COMPLEX Qty: 42.5 5RF Rx Instructions: Place 1g vaginally every other day for the first two weeks. After that, continue using 1g twice weekly Follow-up/Referrals: PHYSICIAN,LANDSCAPE GARDENER [Primary Care Provider, Internal Medicine] Time of Disposition: 10:41 Quality NIHSS Nursing Documentation ED NIHSS nursing documentation: reviewed/agree
== END 2025-09-20 10:46 | disposition home or self-care (01) ==
PROVIDERS: Emergency Provider Nurse Practitioner Family
DX: R30.0 Dysuria (principal); R35.0 Frequency of micturition; R39.15 Urgency of urination; J45.909 Unspecified asthma, uncomplicated; M19.90 Unspecified osteoarthritis, unspecified site; M41.9 Scoliosis, unspecified
CPT/HCPCS: 87086; 99213; G0463